=== PATIENT | male | born 1980 | race Two or more races ===

== ENCOUNTER 2017-02-20 22:28 | Emergency (ER) | payer MEDICAID ==
[~2017-02-20] VITALS: Ht 177.8 cm; Wt 117.9 kg
[2017-02-21] MEDS ORDERED: KETOROLAC TROMETH 60MG/2ML VIAL IM ONE (01:15)
[2017-02-21] MEDS ORDERED: HYDROcodone-ACET 10/325MG TAB PO ONE (01:15)
[2017-02-21 01:50] VITALS: BP 106/84
== END 2017-02-21 02:01 | disposition home or self-care (01) ==
LOC: ER 22:28
DX: E66.01 Morbid (severe) obesity due to excess calories (principal); M79.604 Pain in right leg; Z88.0 Allergy status to penicillin; Z88.8 Allergy status to other drugs, medicaments and biological substances; Z68.37 Body mass index [BMI] 37.0-37.9, adult; V43.52XA Car driver injured in collision with other type car in traffic accident, initial encounter; Y93.89 Activity, other specified; Y99.8 Other external cause status; Y92.410 Unspecified street and highway as the place of occurrence of the external cause
CPT/HCPCS: 70450; 71020; 73552; 96372; 99284; J1885

== ENCOUNTER 2021-04-08 13:32 | Emergency (ER) | payer MEDICAID ==
[~2021-04-08] VITALS: Ht 175.3 cm; Wt 99.8 kg
[2021-04-08] MEDS ORDERED: HYDROcodone-ACET 10/325MG TAB PO ONE (17:00)
[2021-04-08 17:09] VITALS: BP 128/106
== END 2021-04-08 17:32 | disposition home or self-care (01) ==
LOC: ER 13:32
DX: S02.85XA Fracture of orbit, unspecified, initial encounter for closed fracture (principal); S02.2XXA Fracture of nasal bones, initial encounter for closed fracture; Z88.8 Allergy status to other drugs, medicaments and biological substances; Y04.8XXA Assault by other bodily force, initial encounter; Y93.89 Activity, other specified; Y92.89 Other specified places as the place of occurrence of the external cause; Y99.8 Other external cause status
CPT/HCPCS: 70450; 70486

== ENCOUNTER 2022-01-08 22:53 | Emergency (ER) | payer MEDICAID ==
[~2022-01-08] VITALS: Ht 175.3 cm; Wt 113.4 kg
[2022-01-08 23:00] VITALS: BP 149/75
[2022-01-09 00:32] LABS: Basophils # (auto) 0 10 ^3/uL (0-0.2); Basophils % (auto) 0.6 % (0.0-2.0); Eosinophils # (auto) 0 10 ^3/uL (0-0.8); Eosinophils % (auto) 0.3 % (0.0-7.0); Hematocrit 44.3 % (41.0-53.0); Hemoglobin 14.9 g/dL (13.5-17.5); Lymphocytes % (auto) 12.2 % (10.0-50.0); Mean Corpuscular Hemoglobin 28.3 pg (28.0-32.0); Mean Corpuscular Hgb Conc. 33.7 g/dL (32.0-36.0); Mean Corpuscular Volume 84.1 fL (80.0-100.0); Monocytes # (auto) 0.7 10 ^3/uL (0-1.3); Monocytes % (auto) 8.2 % (0.0-12.0); Neutrophils # (auto) 6.6 10 ^3/uL (1.6-8.6); Neutrophils % (auto) 78.7 % (37.0-80.0); Red Blood Cells 5.27 10^6/uL (4.5-5.90); Red Cell Distribution Width 14.4 % (11.8-14.3); White Blood Cell 8.4 10^3/uL (4.4-10.8)
[2022-01-09 00:50] LABS: Albumin 3.8 g/dL (3.4-5.0); Calcium 8.9 mg/dL (8.5-10.1); Magnesium 2.5 mg/dL (1.6-2.6); Potassium 4.2 mmol/L (3.5-5.1)
[2022-01-09 00:52] LABS: BUN/Creatinine Ratio 13.7
[2022-01-09 00:55] LABS: Bilirubin, Total 1.4 mg/dL (0.2-1.0); Total Protein 7.6 g/dL (6.4-8.2)
== END 2022-01-09 04:02 | disposition left against medical advice (07) ==
LOC: ER 22:53
DX: R07.89 Other chest pain (principal); Z53.21 Procedure and treatment not carried out due to patient leaving prior to being seen by health care provider
CPT/HCPCS: 36415; 71045; 80053; 83735; 84484; 85025; 93005

== ENCOUNTER 2022-01-09 12:26 | Inpatient (IN) | payer MEDICAID ==
[~2022-01-09] VITALS: Ht 175.3 cm; Wt 102.3 kg
[2022-01-09] MEDS ORDERED: SODIUM CHLORIDE 0.9% 2,600 ML IV ONE (13:15)
[2022-01-09 13:33] LABS: Basophils # (auto) 0.1 10 ^3/uL (0-0.2); Basophils % (auto) 0.9 % (0.0-2.0); Eosinophils # (auto) 0 10 ^3/uL (0-0.8); Hematocrit 43.8 % (41.0-53.0); Hemoglobin 14.9 g/dL (13.5-17.5); Lymphocytes # (auto) 0.4 10 ^3/uL (0.4-5.4); Lymphocytes % (auto) 2.6 % (10.0-50.0); Mean Corpuscular Hemoglobin 28.4 pg (28.0-32.0); Mean Corpuscular Hgb Conc. 33.9 g/dL (32.0-36.0); Mean Corpuscular Volume 83.6 fL (80.0-100.0); Monocytes # (auto) 0.4 10 ^3/uL (0-1.3); Monocytes % (auto) 2.9 % (0.0-12.0); Neutrophils # (auto) 13.4 10 ^3/uL (1.6-8.6); Neutrophils % (auto) 93.6 % (37.0-80.0); Red Blood Cells 5.24 10^6/uL (4.5-5.90); Red Cell Distribution Width 14.3 % (11.8-14.3); White Blood Cell 14.3 10^3/uL (4.4-10.8)
[2022-01-09] MEDS ORDERED: VANCOMYCIN PER PHARMACY 0 MG IV SCH (13:45)
[2022-01-09] MEDS ORDERED: CEFEPIME 2 GM in SODIUM CHL 0.9% 50 ML IV ONE (13:45)
[2022-01-09 13:53] LABS: Albumin 3.5 g/dL (3.4-5.0); Potassium 4.1 mmol/L (3.5-5.1)
[2022-01-09 13:55] LABS: BUN/Creatinine Ratio 10.7
[2022-01-09 13:57] LABS: Bilirubin, Total 2.2 mg/dL (0.2-1.0); Total Protein 8.2 g/dL (6.4-8.2)
[2022-01-09] MEDS ORDERED: VANCOMYCIN 1GM/250ML 250 ML IV ONE (14:00)
[2022-01-09] MEDS ORDERED: IOHEXOL 350 MG/ML 100ML IJ ONE ×2 (16:40→16:44)
[2022-01-09 18:20] LABS: Urine Bacteria FEW /hpf (None Seen); Urine Blood Negative /uL (Negative); Urine Mucus FEW (None Seen); Urine Specific Gravity 1.036 (1.001-1.035); Urine WBC <1 /hpf (0 - 3)
[2022-01-09] MEDS ORDERED: ACETAMINOPHEN 325 MG TAB PO ONE (18:30)
[2022-01-09] MEDS ORDERED: MORPHINE SULFATE 4 MG/ML SYR/VIAL IV ONE (20:15)
[2022-01-09] MEDS ORDERED: ACETAMINOPHEN 325 MG TAB PO PRN (21:30)
[2022-01-09] MEDS ORDERED: HYDROcodone-ACET 5/325MG TAB PO PRN (21:30)
[2022-01-09] MEDS ORDERED: ONDANSETRON HCL 4 MG/2 ML VIAL IV PRN (21:30)
[2022-01-09] MEDS: SODIUM CHLORIDE 0.9% 1,000 ML IV SCH (21:48)
[2022-01-09] MEDS: VANCOMYCIN 1GM/250ML 250 ML IV SCH (22:00)
[2022-01-09] MEDS ORDERED: NITROGLYCERIN 0.4 MG SL TAB SL PRN (22:30)
[2022-01-09] MEDS ORDERED: MORPHINE SULFATE INJECTION 2 MG/ML SYRG IV PRN (22:30)
[2022-01-10] MEDS: MORPHINE SULFATE INJECTION 2 MG/ML SYRG IV PRN ×4 (00:16→16:46)
[2022-01-10 01:12] VITALS: BP 124/66
[2022-01-10 05:00] VITALS: BP 136/69
[2022-01-10] MEDS: VANCOMYCIN 1GM/250ML 250 ML IV SCH ×2 (08:05→18:01)
[2022-01-10 09:00] VITALS: BP 139/60
[2022-01-10] MEDS: FAMOTIDINE (10MG/ML) 2ML VL IV SCH (10:00)
[2022-01-10] MEDS: ENOXAPARIN SOD 40 MG/0.4 ML SYRINGE SC SCH (10:38)
[2022-01-10] MEDS: ASPirin 81 mg TAB PO SCH (10:38)
[2022-01-10] MEDS ORDERED: METHADONE HCL 10 MG TAB PO ONE (11:15)
[2022-01-10 13:15] LABS: Basophils # (auto) 0 10 ^3/uL (0-0.2); Basophils % (auto) 0.2 % (0.0-2.0); Eosinophils # (auto) 0 10 ^3/uL (0-0.8); Eosinophils % (auto) 0.1 % (0.0-7.0); Hematocrit 43.5 % (41.0-53.0); Hemoglobin 14.8 g/dL (13.5-17.5); Lymphocytes # (auto) 0.2 10 ^3/uL (0.4-5.4); Lymphocytes % (auto) 4.5 % (10.0-50.0); Mean Corpuscular Hemoglobin 28.8 pg (28.0-32.0); Mean Corpuscular Volume 84.6 fL (80.0-100.0); Monocytes # (auto) 0.3 10 ^3/uL (0-1.3); Monocytes % (auto) 6.3 % (0.0-12.0); Neutrophils # (auto) 3.9 10 ^3/uL (1.6-8.6); Neutrophils % (auto) 88.9 % (37.0-80.0); Nucleated Red Blood Cells % 0.1 %; Red Blood Cells 5.14 10^6/uL (4.5-5.90); White Blood Cell 4.4 10^3/uL (4.4-10.8)
[2022-01-10 13:35] LABS: Albumin 2.7 g/dL (3.4-5.0); Calcium 8.6 mg/dL (8.5-10.1); Potassium 4.1 mmol/L (3.5-5.1)
[2022-01-10 13:40] LABS: BUN/Creatinine Ratio 15.9; Bilirubin, Total 1.2 mg/dL (0.2-1.0)
[2022-01-10] MEDS: SODIUM CHLORIDE 0.9% 1,000 ML IV SCH (16:54)
[2022-01-10 22:00] VITALS: BP 105/57
[2022-01-11] MEDS: MORPHINE SULFATE INJECTION 2 MG/ML SYRG IV PRN ×2 (02:52→11:51)
[2022-01-11] MEDS: VANCOMYCIN 1GM/250ML 250 ML IV SCH ×2 (04:04→14:00)
[2022-01-11 05:00] VITALS: BP 128/70
[2022-01-11] MEDS: SODIUM CHLORIDE 0.9% 1,000 ML IV SCH ×2 (06:55→23:30)
[2022-01-11 09:00] VITALS: BP 118/73
[2022-01-11] MEDS: METHADONE HCL 10 MG TAB PO SCH (09:32)
[2022-01-11] MEDS: ASPirin 81 mg TAB PO SCH (09:33)
[2022-01-11] MEDS: FAMOTIDINE (10MG/ML) 2ML VL IV SCH (09:33)
[2022-01-11] MEDS: ENOXAPARIN SOD 40 MG/0.4 ML SYRINGE SC SCH (09:34)
[2022-01-11 13:00] VITALS: BP 103/63
[2022-01-11 16:53] VITALS: BP 123/73
[2022-01-11 20:00] VITALS: BP 106/56
[2022-01-11 22:00] VITALS: BP 106/56
[2022-01-11] MEDS ORDERED: LINEZOLID 600MG/300ML 300 ML IV SCH (22:00)
[2022-01-12] MEDS: VANCOMYCIN 1GM/250ML 250 ML IV SCH (00:30)
[2022-01-12] MEDS ORDERED: CYCLOBENZAPRINE HCL 10 MG TAB PO PRN (02:15)
[2022-01-12 05:00] VITALS: BP 107/82
[2022-01-12 09:00] VITALS: BP 113/69
[2022-01-12] MEDS: ENOXAPARIN SOD 40 MG/0.4 ML SYRINGE SC SCH (09:15)
[2022-01-12] MEDS: MORPHINE SULFATE INJECTION 2 MG/ML SYRG IV PRN (09:15)
[2022-01-12] MEDS: CEFTRIAXONE SODIUM 2 GM in D5W 5% 50 ML IV SCH (09:15)
[2022-01-12] MEDS: FAMOTIDINE (10MG/ML) 2ML VL IV SCH (09:15)
[2022-01-12] MEDS: ASPirin 81 mg TAB PO SCH (09:15)
[2022-01-12] MEDS: METHADONE HCL 10 MG TAB PO SCH ×2 (10:33→15:52)
[2022-01-12 12:35] VITALS: BP 117/64
[2022-01-12 17:00] VITALS: BP 116/58
[2022-01-12] MEDS: SODIUM CHLORIDE 0.9% 1,000 ML IV SCH (17:02)
[2022-01-12 22:00] VITALS: BP 119/72
[2022-01-13 05:02] VITALS: BP 112/73
[2022-01-13 08:23] VITALS: BP 110/67
[2022-01-13] MEDS: SODIUM CHLORIDE 0.9% 1,000 ML IV SCH (08:50)
[2022-01-13] MEDS: FAMOTIDINE (10MG/ML) 2ML VL IV SCH (09:52)
[2022-01-13] MEDS: CEFTRIAXONE SODIUM 2 GM in D5W 5% 50 ML IV SCH (09:53)
[2022-01-13] MEDS: ENOXAPARIN SOD 40 MG/0.4 ML SYRINGE SC SCH (09:53)
[2022-01-13] MEDS: ASPirin 81 mg TAB PO SCH (10:00)
[2022-01-13 13:19] VITALS: BP 114/67
[2022-01-13] MEDS: METHADONE HCL 10 MG TAB PO SCH (14:35)
[2022-01-13 16:47] VITALS: BP 109/81
[2022-01-13 22:30] VITALS: BP 118/75
[2022-01-14] MEDS: SODIUM CHLORIDE 0.9% 1,000 ML IV SCH ×2 (01:30→06:47)
[2022-01-14 05:17] VITALS: BP 110/68
[2022-01-14] MEDS: CEFTRIAXONE SODIUM 2 GM in D5W 5% 50 ML IV SCH (09:27)
[2022-01-14] MEDS: ASPirin 81 mg TAB PO SCH (09:27)
[2022-01-14] MEDS: FAMOTIDINE (10MG/ML) 2ML VL IV SCH (09:27)
[2022-01-14] MEDS: METHADONE HCL 10 MG TAB PO SCH (09:28)
[2022-01-14] MEDS: ENOXAPARIN SOD 40 MG/0.4 ML SYRINGE SC SCH (09:29)
[2022-01-14 09:40] VITALS: BP 112/72
[2022-01-14 12:34] VITALS: BP 114/69
[2022-01-14 16:35] VITALS: BP 121/74
[2022-01-14 22:11] VITALS: BP 122/83
[2022-01-15] MEDS: SODIUM CHLORIDE 0.9% 1,000 ML IV SCH (01:55)
[2022-01-15 04:56] VITALS: BP 106/66
[2022-01-15 09:09] VITALS: BP 112/67
[2022-01-15] MEDS: ENOXAPARIN SOD 40 MG/0.4 ML SYRINGE SC SCH (09:35)
[2022-01-15] MEDS: ASPirin 81 mg TAB PO SCH (09:35)
[2022-01-15] MEDS: FAMOTIDINE (10MG/ML) 2ML VL IV SCH (09:35)
[2022-01-15] MEDS: CEFTRIAXONE SODIUM 2 GM in D5W 5% 50 ML IV SCH (09:35)
[2022-01-15] MEDS: METHADONE HCL 10 MG TAB PO SCH (09:36)
[2022-01-15 12:54] VITALS: BP 112/76
[2022-01-15 16:59] VITALS: BP 109/80
[2022-01-15 20:23] LABS: Eosinophils # (auto) 0.3 10 ^3/uL (0-0.8); Lymphocytes # (auto) 2.5 10 ^3/uL (0.4-5.4); Mean Corpuscular Volume 83.7 fL (80.0-100.0); Monocytes # (auto) 0.6 10 ^3/uL (0-1.3); White Blood Cell 6.5 10^3/uL (4.4-10.8)
[2022-01-15 20:36] LABS: BUN/Creatinine Ratio 15.5; Calcium 8.5 mg/dL (8.5-10.1)
[2022-01-15 20:44] LABS: Basophils # (auto) 0.1 10 ^3/uL (0-0.2); Basophils % (auto) 0.9 % (0.0-2.0); Eosinophils % (auto) 4.7 % (0.0-7.0); Hematocrit 43.6 % (41.0-53.0); Hemoglobin 14.9 g/dL (13.5-17.5); Lymphocytes % (auto) 38.8 % (10.0-50.0); Mean Corpuscular Hemoglobin 28.6 pg (28.0-32.0); Mean Corpuscular Hgb Conc. 34.2 g/dL (32.0-36.0); Monocytes % (auto) 9.6 % (0.0-12.0); Nucleated Red Blood Cells % 0.1 %; Red Blood Cells 5.21 10^6/uL (4.5-5.90); Red Cell Distribution Width 13.8 % (11.8-14.3)
[2022-01-15 22:00] VITALS: BP 109/65
[2022-01-16] MEDS: SODIUM CHLORIDE 0.9% 1,000 ML IV SCH (03:21)
[2022-01-16 05:00] VITALS: BP 105/50
[2022-01-16 08:00] VITALS: BP 107/50
[2022-01-16] MEDS ORDERED: LEVO500T31 PO (11:21)
[2022-01-16] MEDS ORDERED: METH10T PO (11:21)
[2022-01-16] MEDS: FAMOTIDINE (10MG/ML) 2ML VL IV SCH (11:30)
[2022-01-16] MEDS: CEFTRIAXONE SODIUM 2 GM in D5W 5% 50 ML IV SCH (11:30)
[2022-01-16] MEDS: ASPirin 81 mg TAB PO SCH (11:31)
[2022-01-16] MEDS: METHADONE HCL 10 MG TAB PO SCH (11:31)
[2022-01-16] MEDS: ENOXAPARIN SOD 40 MG/0.4 ML SYRINGE SC SCH (11:32)
[2022-01-16 12:00] VITALS: BP 110/67
[2022-01-16 15:03] VITALS: BP 110/67
[2022-01-16 15:18] VITALS: BP 110/67
== END 2022-01-16 18:18 | disposition home or self-care (01) | DRG 720 ==
LOC: ER 12:26 → TELE-WESTW 22:21 → WEST WING 01-14 11:53
PROVIDERS: ADMIT Nurse Practitioner Family; ATTEND Family Medicine
DX: A40.9 Streptococcal sepsis, unspecified (principal); E87.1 Hypo-osmolality and hyponatremia; I38 Endocarditis, valve unspecified; F11.13 Opioid abuse with withdrawal; Z20.822 Contact with and (suspected) exposure to COVID-19; Z88.0 Allergy status to penicillin; Z88.8 Allergy status to other drugs, medicaments and biological substances; R07.9 Chest pain, unspecified
CPT/HCPCS: 36415; 71045; 71275; 76881; 80048; 80053; 80061; 80202; 81001; 82962; 83036; 83605; 83880; 84484; 85025; 85379; 87040; 87077; 87186; 93005; 93306; 93970; 96365; 96368; G0378; J0696; J3490; J7060

== ENCOUNTER 2022-05-08 20:47 | Emergency (ER) | payer MEDICAID ==
[~2022-05-08] VITALS: Ht 180.3 cm; Wt 91.0 kg
[2022-05-08 20:47] VITALS: BP 141/79
[~2022-05-08 20:47] MED LIST: LEVO500T31 PO; METH10T PO
[2022-05-09 00:01] LABS: Basophils # (auto) 0 10 ^3/uL (0-0.2); Basophils % (auto) 0.5 % (0.0-2.0); Eosinophils # (auto) 0.1 10 ^3/uL (0-0.8); Eosinophils % (auto) 1.2 % (0.0-7.0); Hematocrit 42.8 % (41.0-53.0); Hemoglobin 14.2 g/dL (13.5-17.5); Lymphocytes # (auto) 1.9 10 ^3/uL (0.4-5.4); Lymphocytes % (auto) 22.9 % (10.0-50.0); Mean Corpuscular Hemoglobin 28.1 pg (28.0-32.0); Mean Corpuscular Hgb Conc. 33.1 g/dL (32.0-36.0); Monocytes # (auto) 0.6 10 ^3/uL (0-1.3); Monocytes % (auto) 7.1 % (0.0-12.0); Neutrophils # (auto) 5.7 10 ^3/uL (1.6-8.6); Neutrophils % (auto) 68.3 % (37.0-80.0); Nucleated Red Blood Cells % 0.1 %; Red Blood Cells 5.03 10^6/uL (4.5-5.90); Red Cell Distribution Width 13.4 % (11.8-14.3); White Blood Cell 8.4 10^3/uL (4.4-10.8)
[2022-05-09 00:20] LABS: Albumin 3.4 g/dL (3.4-5.0); Calcium 9.1 mg/dL (8.5-10.1); Potassium 3.9 mmol/L (3.5-5.1)
[2022-05-09 00:23] LABS: BUN/Creatinine Ratio 9.8
[2022-05-09 00:38] LABS: Bilirubin, Total 0.5 mg/dL (0.2-1.0)
== END 2022-05-09 09:29 | disposition left against medical advice (07) ==
LOC: ER 20:47
DX: L02.413 Cutaneous abscess of right upper limb (principal); Z53.21 Procedure and treatment not carried out due to patient leaving prior to being seen by health care provider
CPT/HCPCS: 36415; 80053; 85025; 86141

== ENCOUNTER 2022-09-29 11:10 | Emergency (ER) | payer MEDICAID ==
[~2022-09-29] VITALS: Ht 175.3 cm; Wt 104.7 kg
[2022-09-29 12:15] LABS: Albumin 3.8 g/dL (3.4-5.0); BUN/Creatinine Ratio 19.5; Calcium 8.9 mg/dL (8.5-10.1); Potassium 3.9 mmol/L (3.5-5.1)
[2022-09-29 12:18] LABS: Bilirubin, Total 0.4 mg/dL (0.2-1.0); Total Protein 7.2 g/dL (6.4-8.2)
[2022-09-29 12:20] LABS: Basophils # (auto) 0 10 ^3/uL (0-0.2); Basophils % (auto) 0.5 % (0.0-2.0); Eosinophils # (auto) 0.2 10 ^3/uL (0-0.8); Eosinophils % (auto) 3.7 % (0.0-7.0); Hematocrit 39.4 % (41.0-53.0); Hemoglobin 13.2 g/dL (13.5-17.5); Lymphocytes # (auto) 1.9 10 ^3/uL (0.4-5.4); Lymphocytes % (auto) 44.6 % (10.0-50.0); Mean Corpuscular Hemoglobin 28.8 pg (28.0-32.0); Mean Corpuscular Hgb Conc. 33.6 g/dL (32.0-36.0); Mean Corpuscular Volume 85.7 fL (80.0-100.0); Monocytes # (auto) 0.4 10 ^3/uL (0-1.3); Monocytes % (auto) 10.1 % (0.0-12.0); Neutrophils # (auto) 1.7 10 ^3/uL (1.6-8.6); Neutrophils % (auto) 41.1 % (37.0-80.0); Nucleated Red Blood Cells % 0.3 %; Red Blood Cells 4.59 10^6/uL (4.5-5.90); Red Cell Distribution Width 13.1 % (11.8-14.3); White Blood Cell 4.2 10^3/uL (4.4-10.8)
[2022-09-29 15:55] VITALS: BP 129/73
== END 2022-09-29 16:00 | disposition home or self-care (01) ==
LOC: ER 11:10
DX: R07.89 Other chest pain (principal); F12.10 Cannabis abuse, uncomplicated; F15.10 Other stimulant abuse, uncomplicated; F11.10 Opioid abuse, uncomplicated; Z79.899 Other long term (current) drug therapy; Z88.0 Allergy status to penicillin; Z88.8 Allergy status to other drugs, medicaments and biological substances
CPT/HCPCS: 36415; 71046; 80053; 83735; 83880; 84484; 85025; 93005; 93970